=== PATIENT | male | born 1945 | race Caucasian/White ===

== ENCOUNTER → 2016-07-30 | Outpatient (CLI) | payer MEDICARE, MEDICAID ==
[2016-07-30 15:52] LABS: ABSOLUTE EOSINOPHILS # (AUTO) 0.1 10^3/uL (0.0-0.6); ABSOLUTE LYMPHOCYTES (AUTO) 0.8 10^3/uL (0.5-4.7); ABSOLUTE MONOCYTES (AUTO) 0.6 10^3/uL (0.1-1.4); ABSOLUTE NEUT (AUTO) 6.2 10^3/uL (1.7-8.2); BASOPHILS % (AUTO) 0.4 % (0-2); EOSINOPHILS % (AUTO) 1.2 % (0-6); HEMATOCRIT 39.6 % (37.9-51.0); HEMOGLOBIN 13.2 g/dL (13.5-17.0); LYMPHOCYTES % (AUTO) 10.9 % (13-45); MEAN CORPUSCULAR HEMOGLOBIN 31.1 pg (27.0-33.4); MEAN CORPUSCULAR HGB CONC 33.4 g/dL (32.0-36.0); MEAN CORPUSCULAR VOLUME 93 fl (80-97); MONOCYTES % (AUTO) 7.9 % (3-13); RED BLOOD COUNT 4.25 10^6/uL (4.35-5.55); RED CELL DISTRIBUTION WIDTH 14.2 % (11.5-14.0); SEGMENTED NEUTROPHILS % (AUTO) 79.6 % (42-78); WHITE BLOOD COUNT 7.8 10^3/uL (4.0-10.5)
== END ==
LOC: OD 15:08
PROVIDERS: ATTEND Internal Medicine Pulmonary Disease
DX: J44.9 Chronic obstructive pulmonary disease, unspecified (principal)
CPT/HCPCS: 36415; 71020; 85025

== ENCOUNTER → 2016-10-08 | Outpatient (CLI) | payer MEDICARE ==
[2016-10-08 11:35] LABS: ABSOLUTE EOSINOPHILS # (AUTO) 0.1 10^3/uL (0.0-0.6); ABSOLUTE LYMPHOCYTES (AUTO) 1.3 10^3/uL (0.5-4.7); ABSOLUTE MONOCYTES (AUTO) 0.5 10^3/uL (0.1-1.4); ABSOLUTE NEUT (AUTO) 5.7 10^3/uL (1.7-8.2); BASOPHILS % (AUTO) 0.1 % (0-2); EOSINOPHILS % (AUTO) 1.1 % (0-6); HEMOGLOBIN 13.7 g/dL (13.5-17.0); HGB HCT DIFFERENCE 0.1; MEAN CORPUSCULAR HEMOGLOBIN 30.3 pg (27.0-33.4); MEAN CORPUSCULAR HGB CONC 33.5 g/dL (32.0-36.0); MEAN CORPUSCULAR VOLUME 91 fl (80-97); RED BLOOD COUNT 4.53 10^6/uL (4.35-5.55); RED CELL DISTRIBUTION WIDTH 14.2 % (11.5-14.0); SEGMENTED NEUTROPHILS % (AUTO) 75.8 % (42-78); WHITE BLOOD COUNT 7.5 10^3/uL (4.0-10.5)
== END ==
LOC: OD 10:06
PROVIDERS: ATTEND Internal Medicine Pulmonary Disease
DX: J44.9 Chronic obstructive pulmonary disease, unspecified (principal)
CPT/HCPCS: 36415; 71020; 85025; 87070; 87205

== ENCOUNTER 2017-06-05 15:04 | Emergency (ER) | payer MEDICARE, MEDICAID ==
--- NOTE | 2017-06-05 15:56 | ER Document Report ---
ED Medical Screen (RME) - General Chief Complaint: Abdominal Pain Stated Complaint: ABDOMINAL PAIN Time Seen by Provider: 06/05/17 15:51 Notes: Patient says that he is been sick at his stomach for at least 3 weeks. He feels bloated with swelling of his abdomen and does not want to eat. He is not sleeping. Says he has been having chronic abdominal pain for a long time. Feels very weak. Denies nausea or vomiting or diarrhea. Is having some difficulty with his bowel movements although he did have some bowel movement this morning. No fever. Denies any abdominal surgeries. No history of blockage or obstruction. TRAVEL OUTSIDE OF THE [place] IN LAST 30 DAYS: No - Related Data Allergies/Adverse Reactions: Sulfa (Sulfonamide Antibiotics) Allergy (Verified 06/05/17 15:10) Past Medical History - Social History Frequency of alcohol use: None Drug Abuse: None - Past Medical History Cardiac Medical History: Reports: Hx Hypercholesterolemia, Hx Hypertension Pulmonary Medical History: Reports: Hx COPD Neurological Medical History: Denies: Hx Seizures Endocrine Medical History: Reports: Hx Diabetes Mellitus Type 2 Renal/ Medical History: Denies: Hx Peritoneal Dialysis GI Medical History: Reports: Hx Gastroesophageal Reflux Disease Psychiatric Medical History: Reports: Hx Depression Past Surgical History: Reports: Hx Orthopedic Surgery - Backx2 - Immunizations Hx Diphtheria, Pertussis, Tetanus Vaccination: Yes Physical Exam - Vital signs Vitals: Temp Pulse Resp BP Pulse Ox 98.1 F 70 18 164/71 H 96 06/05/17 15:12 06/05/17 15:12 06/05/17 15:12 06/05/17 15:12 06/05/17 15:12 Course - Vital Signs Vital signs: Temp Pulse Resp BP Pulse Ox 98.1 F 70 18 164/71 H 96 06/05/17 15:12 06/05/17 15:12 06/05/17 15:12 06/05/17 15:12 06/05/17 15:12
[2017-06-05 16:34] LABS: ABSOLUTE EOSINOPHILS # (AUTO) 0.1 10^3/uL (0.0-0.6); ABSOLUTE LYMPHOCYTES (AUTO) 1.4 10^3/uL (0.5-4.7); ABSOLUTE MONOCYTES (AUTO) 0.6 10^3/uL (0.1-1.4); ABSOLUTE NEUT (AUTO) 5.3 10^3/uL (1.7-8.2); BASOPHILS % (AUTO) 0.3 % (0-2); EOSINOPHILS % (AUTO) 1.1 % (0-6); HEMATOCRIT 40.4 % (37.9-51.0); HEMOGLOBIN 13.8 g/dL (13.5-17.0); LYMPHOCYTES % (AUTO) 18.9 % (13-45); MEAN CORPUSCULAR HEMOGLOBIN 30.2 pg (27.0-33.4); MEAN CORPUSCULAR HGB CONC 34.1 g/dL (32.0-36.0); MEAN CORPUSCULAR VOLUME 89 fl (80-97); MONOCYTES % (AUTO) 8.6 % (3-13); RED BLOOD COUNT 4.56 10^6/uL (4.35-5.55); RED CELL DISTRIBUTION WIDTH 14.5 % (11.5-14.0); SEGMENTED NEUTROPHILS % (AUTO) 71.1 % (42-78); WHITE BLOOD COUNT 7.4 10^3/uL (4.0-10.5)
[2017-06-05 16:54] LABS: ALANINE AMINOTRANSFERASE 59 U/L (21-72); ALKALINE PHOSPHATASE 73 U/L (38-126); ANION GAP 16 (5-19); ASPARTATE AMINO TRANSFERASE 42 U/L (17-59); BILIRUBIN,DIRECT 0.3 mg/dL (0.0-0.4); BILIRUBIN,TOTAL 0.6 mg/dL (0.2-1.3); BLOOD UREA NITROGEN 21 mg/dL (7-20); CALCIUM 9.9 mg/dL (8.4-10.2); CARBON DIOXIDE 28 mmol/L (22-30); CHLORIDE 99 mmol/L (98-107); CREATININE RESULT 1.02 mg/dL (0.52-1.25); GLUCOSE 145 mg/dL (75-110); POTASSIUM 4.2 mmol/L (3.6-5.0); SODIUM 142.8 mmol/L (137-145); TOTAL PROTEIN 7.4 g/dL (6.3-8.2)
[2017-06-05 17:06] LABS: CREATINE KINASE MB 7.64 ng/mL (<4.55)
[2017-06-05 17:10] LABS: TROPONIN I < 0.012 ng/mL
[2017-06-05 18:11] LABS: APPEARANCE,URINE CLEAR; BILIRUBIN,URINE NEGATIVE (NEGATIVE); GLUCOSE, URINE >=500 mg/dL (NEGATIVE); KETONES,URINE NEGATIVE (NEGATIVE); LEUKOCYTE ESTERASE,URINE NEGATIVE (NEGATIVE); NITRITE,URINE NEGATIVE (NEGATIVE); PROTEIN,URINE NEGATIVE (NEGATIVE); URINE SPECIFIC GRAVITY 1.027; UROBILINOGEN,URINE NEGATIVE mg/dL (<2.0)
--- NOTE | 2017-06-05 18:31 | ER Document Report ---
ED GI/ - General Mode of Arrival: Ambulatory Information source: Patient, [facility] TRAVEL OUTSIDE OF THE [place] IN LAST 30 DAYS: No - HPI Patient complains to provider of: Abdominal pain. No: Diarrhea, Dysuria, Feeding tube problem, Flank pain, Alarcon catheter problem, Groin pain, Hematuria , Testicular pain, Urinary retention, Vomiting, Other Timing/Duration: Gradual, Worse Quality of pain: Achy, Other - Turning Severity at maximum: Moderate Severity in ED: Moderate Pain Level: 2 Location: [facility] Adult Front & Back Diagram: 1 - Area of discomfort Sexual history: Inactive Associated symptoms: Nausea. denies: None, Blood in emesis, Blood in stool, Chest pain, Chills, Coffee ground emesis, Constipation, Diarrhea, Dizzy, Dysuria , Erection problem, Fever, Foreskin problem, Hard stool, Hematuria, Hematospermia, Hurts to breath, Inguinal mass, Lightheaded, Loss of appetite, Painful intercourse, Penile discharge, Radiates to back, Radiates to chest, Radiates to testicles, Radiates to shoulder, Shortness of breath, Sweaty, Syncope, Urinary hesitancy, Urinary frequency, Urinary retention, Urinary urgency, Vomiting, Other Exacerbated by: Denies Relieved by: Denies Similar symptoms previously: Yes Recently seen / treated by doctor: Yes <SHANE YOUSSEF - Last Filed: 06/05/17 18:51> <DRE THEODORE - Last Filed: 06/05/17 19:43> - General Chief Complaint: Abdominal Pain Stated Complaint: ABDOMINAL PAIN Time Seen by Provider: 06/05/17 15:51 Notes: Patient is a 71-year-old male comes to the emergency room after being seen and evaluated by a physician studio assistant at [facility]. This physician studio assistant noted that patient stated he just does not feel good that he has had stomach problems for years but over the past week the stomach felt like it was tore up. When asked explained further according to her note he said it was difficult to describe that it was more like a churning with nausea and some discomfort around his umbilicus. He also stated that he tries to eat in his stomach concerns. He has been constipated for 3 days without a bowel movement this morning denied any change in color of his stools and he has had no diarrhea he has history of chronic back pain he also states she has had chronic fatigue for the past couple weeks but no chest pain or shortness of breath patient denies any vomiting but he has had some nausea throughout this past 2 weeks. (SHANE YOUSSEF) - HPI Notes: 06/05/17 18:51 During patient's stay he has had no significant pain or discomfort. His labs are basically all normal with the exception of his urine has 500+ glucose in it , and his CK-MB come back at 7.5 I believe. He has had no cardiac problems his troponin is negative. He has had no increased shortness of breath while being here either. I presented assumed that Dr. Robles has ordered a CT of the abdomen and pelvis with oral contrast patient has had an extended period of time drinking this slowly. As of 1849 patient has not gone to CT yet. I will be handing this off to the night time [facility]. If patient's CT comes back normal he can be discharged home for follow-up with his primary care again over on Thursday. If there is any significant findings APC will address that at the time. (SHANE YOUSSEF) - Related Data Allergies/Adverse Reactions: Sulfa (Sulfonamide Antibiotics) Allergy (Verified 06/05/17 15:10) Past Medical History - General Information source: Patient - Social History Smoking Status: Former Smoker Cigarette use (# per day): No Chew tobacco use (# tins/day): No Smoking Education Provided: Yes Frequency of alcohol use: None Drug Abuse: None Occupation: Retired Lives with: Spouse/Significant other Family History: Reviewed & Not Pertinent Patient has suicidal ideation: No Patient has homicidal ideation: No - Past Medical History Cardiac Medical History: Reports: Hx Hypercholesterolemia, Hx Hypertension Pulmonary Medical History: Reports: Hx COPD Neurological Medical History: Denies: Hx Seizures Endocrine Medical History: Reports: Hx Diabetes Mellitus Type 2 Renal/ Medical History: Denies: Hx Peritoneal Dialysis GI Medical History: Reports: Hx Gastroesophageal Reflux Disease Psychiatric Medical History: Reports: Hx Depression Past Surgical History: Reports: Hx Orthopedic Surgery - Backx2 - Immunizations Hx Diphtheria, Pertussis, Tetanus Vaccination: Yes Hx Pneumococcal Vaccination: 04/12/13 <SHANE YOUSSEF - Last Filed: 06/05/17 18:51> Review of Systems - Review of Systems Constitutional: Weakness EENT: No symptoms reported Cardiovascular: No symptoms reported Respiratory: No symptoms reported Gastrointestinal: See HPI, Abdomen distended, Abdominal pain, Nausea, Constipation Genitourinary: No symptoms reported Male Genitourinary: No symptoms reported Musculoskeletal: No symptoms reported Skin: No symptoms reported Hematologic/Lymphatic: No symptoms reported Neurological/Psychological: No symptoms reported -: Yes All other systems reviewed and negative <SHANE YOUSSEF - Last Filed: 06/05/17 18:51> Physical Exam - Vital signs Interpretation: Hypertensive - General General appearance: Appears well, Other - On physical exam patient is awake alert and oriented 4. He is in no apparent distress on physical exam. Currently he states that I merrily he is seeking medical attention now because his girth on his abdomen has extended itself and he is somewhat distended with some nonspecific tenderness across the abdomen. Patient states he has had turning in his stomach and that is caused him to be nauseated. He denies having any weight loss or significant weight gain. - HEENT Head: Normocephalic, Atraumatic Mouth/Lips: Normal Mucous membranes: Normal, Moist Pharynx: Normal. No: Blood in hypopharynx, Erythema, Exudate, Peritonsillar abscess, Post nasal drainage, Retropharyngeal abscess, Tonsillar hypertrophy, Uvular edema, Potential airway comprom., Other - Respiratory Respiratory status: No respiratory distress Breath sounds: Decreased air movement, Other - No rhonchi wheeze or rales noted on auscultation patient's lung perry. Chest palpation: Normal. No: Flail segment, [place] frothy sputum, Purulent sputum , Subcutaneous emphysema, Sucking chest wound, Tender, Ecchymosis, Wounds, Other - Cardiovascular Rhythm: Regular Heart sounds: Normal auscultation Murmur: No - Abdominal Inspection: Morbidly Obese Distension: Distended, Tympanitic, Other - Examination patient's abdomen shows it to be moderately distended there are hyperactive bowel sounds noted throughout his abdomen. He is somewhat tympanitic in the upper abdominal quadrants when he is supine. There is no periumbilical tenderness noted on this physical exam. Patient also displays no flank pain on percussion.. No: No distension, Fluid wave, Distended bladder Bowel sounds: Hyperactive Tenderness: Tender, Other - See above. Patient has diffuse tenderness nonspecific all quads - Back Back: Tender - Displays little tenderness to palpation along the lumbar spine area. No significant abnormalities found at this time. - Neurological Neuro grossly intact: Yes Cognition: Normal Orientation: AAOx4 Lacey Coma Scale Eye Opening: Spontaneous Jackson Coma Scale Verbal: Oriented Jackson Coma Scale Motor: Obeys Commands Lacey Coma Scale Total: 15 Speech: Normal <SHANE YOUSSEF - Last Filed: 06/05/17 18:51> - Vital signs Vitals: Temp Pulse Resp BP Pulse Ox 98.1 F 70 18 164/71 H 96 06/05/17 15:12 06/05/17 15:12 06/05/17 15:12 06/05/17 15:12 06/05/17 15:12 Course - Laboratory Result Diagrams: 06/05/17 16:17 06/05/17 16:17 <SHANE YOUSSEF - Last Filed: 06/05/17 18:51> - Laboratory Result Diagrams: 06/05/17 16:17 06/05/17 16:17 <DRE THEODORE - Last Filed: 06/05/17 19:43> - Re-evaluation Re-evalutation: 06/05/17 19:40 I took over care for Shane Youssef PA-C and was introduced at bedside. If CT scan comes back negative, then pt will be discharged home. Plan was reviewed with the patient and family. I did order for 1L NS after his CT scan. Pt currently doing well w/o any new concerns or complaints. Pt overall looks well , smiling, talking, and even laughing. Patient is an afebrile, well-hydrated, 71-year-old male who presents the ED with abdominal pain otherwise specified. Vitals are stable. PE is otherwise unremarkable. Blood work was unremarkable today. CT scan of the abdomen pelvis was unremarkable for any acute pathology. Low suspicion/risk for acute appendicitis, bowel obstruction, acute cholecystitis, perforated diverticulitis , incarcerated hernia, pancreatitis, perforated ulcer, peritonitis, sepsis, testicular torsion, or other systemic emergent condition at this time. Patient is aware that his condition can change from initial presentation and he needs to monitor symptoms closely and seek medical attention if any acute changes. Conservative measures otherwise for symptoms. Recheck with PCM in 3-5 days. Consider consult with a structural steel ironworker. Return to the ED with any worsening /concerning symptoms otherwise as reviewed in discharge. Patient is in agreement. (DRE THEODORE) - Vital Signs Vital signs: Temp Pulse Resp BP Pulse Ox 98.1 F 70 18 164/71 H 96 06/05/17 15:12 06/05/17 15:12 06/05/17 15:12 06/05/17 15:12 06/05/17 15:12 - Laboratory Laboratory results interpreted by me: 06/05/17 06/05/17 06/05/17 14:34 16:17 16:17 RDW 14.5 H BUN 21 H Glucose 145 H CK-MB (CK-2) Urine Glucose (UA) >=500 H Urine Ascorbic Acid 40 H 06/05/17 16:17 RDW BUN Glucose CK-MB (CK-2) 7.64 H Urine Glucose (UA) Urine Ascorbic Acid Discharge <SHANE YOUSSEF - Last Filed: 06/05/17 18:51> <DRE THEODORE - Last Filed: 06/05/17 19:43> - Discharge Clinical Impression: Unspecified abdominal pain Qualifiers: Abdominal location: unspecified location Qualified Code(s): R10.9 - Unspecified abdominal pain Condition: Stable Disposition: HOME, SELF-CARE Instructions: Abdominal Pain ([facility]), Low-Fat Diet ([facility]) Additional Instructions: Maintain adequate fluid and food intake Cassia diet (B.R.A.T.) Bananas, rice, apples, toast, etc tylenol if needed Monitor for any worsening symptoms Make sure you are staying hydrated enough to urinate and have normal BM's Recheck with your PCM in 3-5 days Consider consult with Gastroenterology for ongoing/worsening symptoms Return to the ED with any worsening symptoms and/or development of fever, headache, chest pain, palpitations, syncope, shortness of breath, trouble breathing, abdominal pain, n/v/d, blood in stool/urine, weakness, or other worsening symptoms that are concerning to you. Forms: Elevated Blood Pressure Referrals: DANNY CHANG MD [ACTIVE STAFF] - Follow up as needed DORON WALLACE PA [ALLIED HEALTH PROFESSIONAL] - Follow up in 3-5 days
[2017-06-05] MEDS ORDERED: NORMAL SALINE 1000 ML 1,000 ML IV ONE (19:09)
--- NOTE | 2017-06-05 19:38 | RADIOLOGY REPORT (SQ) ---
EXAM DESCRIPTION: CT ABD/PELVIS WITH IV ORAL COMPLETED DATE/TIME: 06/05/2017 7:07 pm REASON FOR STUDY: Abdominal pain and bloating, swelling COMPARISON: CT abdomen pelvis 07/14/2013 TECHNIQUE: CT scan of the abdomen and pelvis performed using helical scanning technique with dynamic intravenous contrast injection. Patient drank oral contrast. Images reviewed with lung, soft tissue , and bone windows. Reconstructed coronal and sagittal MPR images reviewed. Delayed images for evalua tion of the urinary system also acquired. All images stored on PACS. All CT scanners at this facility use dose modulation, iterative reconstruction, and/or weight based d osing when appropriate to reduce radiation dose to as low as reasonably achievable (ALARA). [facility]: Dose Right [facility]: CareDose [facility]: Dose Right [facility]: Teradose 4D [facility]: [employer] CONTRAST TYPE AND DOSE: contrast/concentration: Isovue 370.00 mg/ml; Total Contrast Delivered: 100.0 ml; Total Saline Delivered: 72.0 ml RENAL FUNCTION: Creatinine 1.02 RADIATION DOSE: CT Rad equipment meets quality standard of care and radiation dose reduction techniq ues were employed. CTDIvol: 18.2 - 20.2 mGy. DLP: 2247 mGy-cm.. LIMITATIONS: None. FINDINGS: LOWER CHEST: Small hiatal hernia. Lung bases clear. LIVER: Normal size. No masses. No dilated ducts. SPLEEN: Normal size. No focal lesions. PANCREAS: No masses. No significant calcifications. No adjacent inflammation or peripancreatic fluid collections. Pancreatic duct not dilated. GALLBLADDER: No identified stones by CT criteria. No inflammatory changes to suggest cholecystitis. ADRENAL GLANDS: No significant masses or asymmetry. RIGHT KIDNEY AND URETER: No solid masses. No significant calcifications. No hydronephrosis or hyd roureter. LEFT KIDNEY AND URETER: No solid masses. No significant calcifications. No hydronephrosis or hydr oureter. AORTA AND VESSELS: No aneurysm. No dissection. Renal arteries, SMA, celiac without stenosis. RETROPERITONEUM: No retroperitoneal adenopathy, hemorrhage or masses. BOWEL AND PERITONEAL CAVITY: No masses or inflammatory changes. No free fluid or peritoneal masses. Patient drank oral contrast. No CT evidence of bowel obstruction. No colonic diverticuli. APPENDIX: Surgically absent PELVIS: No mass. No free fluid. Normal bladder. Normal size prostate with TUR defect ABDOMINAL WALL: No masses. No hernias. BONES: No significant or acute findings. OTHER: No other significant finding. IMPRESSION: NO SIGNIFICANT OR ACUTE FINDING IN THE ABDOMEN OR PELVIS ON CT SCAN WITH IV CONTRAST. TECHNICAL DOCUMENTATION: JOB ID: [id number] Quality ID # [id number]: Final reports with documentation of one or more dose reduction techniques (e.g., Au tomated exposure control, adjustment of the mA and/or kV according to patient size, use of iterative reconstruction technique) 2010 [email or web address]- All Rights Reserved
[2017-06-05 20:03] VITALS: BP 161/68
--- NOTE | 2017-06-06 14:09 | EKG REPORT ---
SEVERITY:- OTHERWISE NORMAL ECG - SINUS RHYTHM BORDERLINE LEFT AXIS DEVIATION : Confirmed by: Noelle Grace MD 06-Jun-2017 14:08:14
== END 2017-06-05 20:02 | disposition home or self-care (01) ==
LOC: ER 15:04
DX: R10.9 Unspecified abdominal pain (principal); R10.33 Periumbilical pain; R11.0 Nausea; K59.00 Constipation, unspecified; M54.9 Dorsalgia, unspecified; G89.29 Other chronic pain; R53.83 Other fatigue
CPT/HCPCS: 36415; 74177; 80053; 81001; 82553; 83690; 84484; 85025; 93005; 93010; 99284

== ENCOUNTER 2019-01-10 01:11 | Emergency (ER) | payer MEDICARE, MEDICAID ==
[2019-01-10 02:36] VITALS: BP 161/78
--- NOTE | 2019-01-10 02:49 | ER Document Report ---
ED General - General Chief Complaint: Inability to Void Stated Complaint: UNABLE TO PASS URINE Time Seen by Provider: 01/10/19 02:11 Notes: Patient is a 73-year-old male with a past medical history of BPH, was seen at [facility] approximately 1 week ago for urinary retention, had a Alarcon catheter placed. States that urine has been passing freely from it although today he noticed that the urine abruptly stopped flowing into the leg bag. He notes a mild, aching, cramping discomfort to his lower abdomen since the urine stopped flowing. Nothing seemed to improve or worsen the symptom when present. States it is improved however since a small clot dropped out of the leg bag and the urine started flowing into the catheter bag while he was walking back to his room here in the emergency department. Has not seen his general physician regarding today's concerns. Denies any vomiting, flank pain, fever or constitutional symptoms. Has not yet been able to follow-up with urology since having the Alarcon catheter placed. TRAVEL OUTSIDE OF THE [place] IN LAST 30 DAYS: No - Related Data Allergies/Adverse Reactions: Sulfa (Sulfonamide Antibiotics) Allergy (Verified 06/05/17 15:10) Past Medical History - General Information source: Patient - Social History Smoking Status: Former Smoker Frequency of alcohol use: None Drug Abuse: None Lives with: Spouse/Significant other Family History: Reviewed & Not Pertinent Patient has suicidal ideation: No Patient has homicidal ideation: No - Past Medical History Cardiac Medical History: Reports: Hx Hypercholesterolemia, Hx Hypertension Pulmonary Medical History: Reports: Hx COPD Neurological Medical History: Denies: Hx Seizures Endocrine Medical History: Reports: Hx Diabetes Mellitus Type 2 Renal/ Medical History: Denies: Hx Peritoneal Dialysis GI Medical History: Reports: Hx Gastroesophageal Reflux Disease Psychiatric Medical History: Reports: Hx Depression Past Surgical History: Reports: Hx Cardiac Surgery, Hx Orthopedic Surgery - Backx2 - Immunizations Hx Diphtheria, Pertussis, Tetanus Vaccination: Yes Hx Pneumococcal Vaccination: 04/12/13 Review of Systems - Review of Systems Notes: Constitutional: Negative for fever. HENT: Negative for sore throat. Eyes: Negative for visual changes. Cardiovascular: Negative for chest pain. Respiratory: Negative for shortness of breath. Gastrointestinal: Negative for abdominal pain, vomiting or diarrhea. Genitourinary: Positive for urinary retention, hematuria Musculoskeletal: Negative for back pain. Skin: Negative for rash. Neurological: Negative for headaches, weakness or numbness. 10 point ROS negative except as marked above and in HPI. Physical Exam - Vital signs Vitals: Temp Pulse Resp BP Pulse Ox 97.5 F 62 16 164/69 H 98 01/10/19 01:16 01/10/19 01:16 01/10/19 01:16 01/10/19 01:16 01/10/19 01:16 Interpretation: Hypertensive Notes: PHYSICAL EXAMINATION: GENERAL: Well-appearing, well-nourished and in no acute distress. HEAD: Atraumatic, normocephalic. EYES: Pupils equal round and reactive to light, extraocular movements intact, sclera anicteric, conjunctiva are normal. ENT: nares patent, oropharynx clear without exudates. Moist mucous membranes. NECK: Normal range of motion, supple without lymphadenopathy LUNGS: Breath sounds clear to auscultation bilaterally and equal. No wheezes rales or rhonchi. HEART: Regular rate and rhythm without murmurs ABDOMEN: Soft, nontender, normoactive bowel sounds. No guarding, no rebound. No masses appreciated. EXTREMITIES: Normal range of motion, no pitting or edema. No cyanosis. NEUROLOGICAL: No focal neurological deficits. Moves all extremities spontaneously and on command. PSYCH: Normal mood, normal affect. SKIN: Warm, Dry, normal turgor, no rashes or lesions noted. Course - Re-evaluation Re-evalutation: 01/10/19 02:45 Patient presents with concerns of longer passing urine into his Alarcon catheter leg bag. The patient noted some mild, lower abdominal discomfort with this. The patient while walking back to the emergency department room saw a clot drop into the catheter bag and then noticed that the leg bag almost completely filled with yellow urine. States he overall feels better but did not have complete resolution. The catheter was subsequently irrigated, clots were removed and the remainder of the urine exited the bladder. Patient felt much better thereafter and has been advised to follow-up with urology as planned. At this time will discharge with return precautions and follow-up recommendations. Verbal discharge instructions given a the bedside and opportunity for questions given. Medication warnings reviewed. Patient is in agreement with this plan and has verbalized understanding of return precautions and the need for primary care follow-up in the next 24-72 hours. - Vital Signs Vital signs: Temp Pulse Resp BP Pulse Ox 97.6 F 64 18 161/78 H 94 01/10/19 02:33 01/10/19 02:33 01/10/19 02:33 01/10/19 02:33 01/10/19 02:33 Discharge - Discharge Clinical Impression: Urinary retention due to benign prostatic hyperplasia Hematuria Qualifiers: Hematuria type: gross Qualified Code(s): R31.0 - Gross hematuria Alarcon catheter problem Qualifiers: Encounter type: initial encounter Qualified Code(s): T83.9XXA - Unspecified complication of genitourinary prosthetic device, implant and graft, initial encounter Condition: Good Disposition: HOME, SELF-CARE Additional Instructions: Please return if you stop passing urine into the bag, have severe pain, develop a fever greater than 101 F, pass out, or have any other symptoms that are worrisome to you. Please follow-up with urology as scheduled.
== END 2019-01-10 02:48 | disposition home or self-care (01) ==
LOC: ER 01:11
DX: N40.1 Benign prostatic hyperplasia with lower urinary tract symptoms (principal); R33.8 Other retention of urine; R31.0 Gross hematuria; T83.9XXA Unspecified complication of genitourinary prosthetic device, implant and graft, initial encounter; X58.XXXA Exposure to other specified factors, initial encounter; E78.00 Pure hypercholesterolemia, unspecified; I10 Essential (primary) hypertension; J44.9 Chronic obstructive pulmonary disease, unspecified; E11.9 Type 2 diabetes mellitus without complications; Z88.2 Allergy status to sulfonamides
CPT/HCPCS: 99283